=== PATIENT | female | born 1955 | race Hispanic/Latino ===

== ENCOUNTER 2024-11-27 10:42 | Day surgery (SDC) | payer OTHER ==
[2024-11-23 12:00] VITALS: BP 158/65; PULSE 61; RESP 18; TEMP 97.7
[2024-11-23 12:05] LABS: BASOPHILS # (AUTO) 0.04 K/uL (0.00-0.20); BASOPHILS % (AUTO) 0.5 % (0.0-5.0); EOSINOPHILS # (AUTO) 0.16 K/uL (0.00-0.70); EOSINOPHILS % (AUTO) 2.1 % (0.0-8.0); HEMATOCRIT 42.7 % (36-48); IMMATURE GRANULOCYTE ABSOLUTE 0.03 K/uL (0-1); LYMPHOCYTES % (AUTO) 26.8 % (21.0-51.0); MEAN CORPUSCULAR HEMOGLOBIN 31.1 pg (27.0-33.0); MEAN CORPUSCULAR HGB CONC 32.3 g/dL (32.0-36.0); MEAN CORPUSCULAR VOLUME 96.2 fL (79-99); MONOCYTES # (AUTO) 0.7 K/uL (0.1-1.0); MONOCYTES % (AUTO) 9.7 % (3.0-13.0); NEUTROPHILS # (AUTO) 4.5 K/uL (1.8-7.7); NEUTROPHILS % (AUTO) 60.5 % (40.0-77.0); PLATELET COUNT (AUTO) 186 K/uL (130-400); RED BLOOD CELL COUNT(AUTO) 4.44 MIL/uL (4.00-5.50); RED CELL DISTRIBUTION WIDTH 12.9 % (11.0-15.5); WHITE BLOOD COUNT (AUTO) 7.5 K/uL (4.8-10.8)
[2024-11-23 12:13] LABS: INR 0.97 (0.85-1.15); PROTHROMBIN TIME 10.3 SEC (9.6-11.6)
[2024-11-23 12:14] LABS: PARTIAL THROMBOPLASTIN TIME 28.9 SEC (26.3-35.5)
[2024-11-23 12:25] LABS: CREATININE 0.8 mg/dL (0.5-1.0); POTASSIUM 4.4 mmol/L (3.5-5.1)
--- NOTE | 2024-11-23 12:30 | NUR ---
verify called dr ramirez/laci nurse to verify no cxr wanted for c. Received orders for cxr
[2024-11-23 12:35] LABS: APPEARANCE,URINE CLEAR (CLEAR); BILIRUBIN,URINE NEGATIVE (NEGATIVE); COLOR,URINE COLORLESS (YELLOW); GLUCOSE, URINE (UA) NEGATIVE (NEGATIVE); KETONES,URINE NEGATIVE (NEGATIVE); LEUKOCYTE ESTERASE ,URINE NEGATIVE Leu/uL (NEGATIVE); NITRATE,URINE NEGATIVE (NEGATIVE); OCCULT BLOOD,URINE NEGATIVE (NEGATIVE); PROTEIN,URINE NEGATIVE (NEGATIVE); UROBILINOGEN,URINE 0.2 mg/dL (0.2-1.0)
[2024-11-23 12:39] LABS: ADD UA MICROSCOPIC NO
[2024-11-23 12:42] LABS: B-TYPE NATRIURETIC PEPTIDE 73 pg/mL (0-100)
--- NOTE | 2024-11-23 13:17 | HMCIMG ---
Exam Type: CHEST 1VW Clinical Information: PRECATH Comparison: None Findings: The lungs are clear of infiltrates. The heart is normal in size. The bony and soft tissue structures of the chest are unremarkable. Impression: Clear lungs.
--- NOTE | 2024-11-23 13:38 | EKG ---
[facility] Test Date: 2024-11-23 Test Time: 11:51:34 Pat Name: JAIME RODAS Department: [facility] Room: Gender: F Brusher: [id number] : 1955 Requested By: Rajani MAHAN Order Number: [id number] Reading MD: Rg Sharif Measurements Intervals [place] Rate: 63 P: 62 CO: 136 QRS: -18 QRSD: 77 T: 34 QT: 459 QTc: 468 Interpretive Statements Sinus rhythm Probable left atrial enlargement Probable left ventricular hypertrophy No previous ECG available for comparison Electronically Signed On 11-26-2024 18:29:41 CDT by Rg Sharif Please click the below link to view image of tracing.
--- NOTE | 2024-11-24 15:54 | NUR ---
orders received the following instructions from herminia murray rn. pt may have clears before 8 am on procedure day then fasting until procedure. pt and sister (janice) informed of above and voiced understanding.
[2024-11-27] VITALS (8 sets, daily range): BP systolic 99–180; BP diastolic 57–71; PULSE 57–69; RESP 14–16; TEMP 97.2–97.9
[~2024-11-27] VITALS: Ht 154.9 cm; Wt 62.3 kg
[~2024-11-27 10:42] MED LIST: ALPR-409 PO; AMLO2.5T4 PO; CALCIUM PO; CITA-108 PO; CLOT15CR5 TP; ERGO500093 PO; FLUT16H NASAL; METO-391 PO; OMEP20CA12 PO; ROSU5TAB51 PO
[2024-11-27] MEDS ORDERED: SODIUM BICARB 50MEQ 50ML VIAL 50 ML ONE (12:06)
[2024-11-27] MEDS ORDERED: HEParin 10,000 UNIT/10ML (1,000 UNIT/ML) VIAL ONE (12:06)
[2024-11-27] MEDS ORDERED: HEParin-NS 1,000 UNIT/500 ML 1,000 ML IV ONE (12:06)
[2024-11-27] MEDS ORDERED: NITROGLYCERIN 50MG VIAL ONE (12:06)
[2024-11-27] MEDS ORDERED: LIDOCAINE HCL 400MG/20ML VIAL ONE (12:06)
[2024-11-27] MEDS ORDERED: IOHEXOL 350 MG/ML 100ML INFUS..BTL IV ONE (12:20)
[2024-11-27] MEDS ORDERED: niCARDIpine 25MG INJ IV ONE (12:21)
[2024-11-27] MEDS ORDERED: MIDAZOLAM HCL 1 MG/ML 2ML VIAL ONE ×2 (12:28→12:35)
[2024-11-27] MEDS ORDERED: FENTanyl CITRate PF 50 MCG/1 ML 2ML VIAL ONE (12:28)
[2024-11-27] MEDS: 0.9%NACL 1000ML 1,000 ML IV SCH (13:30)
--- NOTE | 2024-11-27 14:57 | CCATH ---
PROCEDURES: * Left heart catheterization. * Selective diagnostic right and left coronary arteriogram. * Conscious sedation for 60 minutes. * IFR of the LAD. INDICATIONS: * Coronary artery disease. * Abnormal coronary CTA. COMPLICATIONS: None. TOTAL CONTRAST: 75 mL. APPROACH: Right radial approach. DESCRIPTION OF PROCEDURE: The patient was taken to the cardiac catheterization lab after appropriate operative consents were signed. She was prepped and draped in the usual fashion. After a conscious sedation was administered, the right radial artery region was infiltrated with 2% Xylocaine without epinephrine. A 6-Maori slender sheath was advanced in retrograde fashion with modified Seldinger technique after access and cannulation of the radial artery. At this point, a TIG 4 catheter was advanced, positioned over an indwelling wire into the left ventricular cavity. Left ventricular end-diastolic pressure measurement was obtained. Ventriculography was deferred. There was no evidence of aortic stenosis. An echocardiogram has been ordered. The catheter was then engaged in the ostium of the left main. This was imaged in multiplane. This was a large vessel that was short in its course and free of disease. It was calcified, but nonstenotic. It trifurcated into an LAD, and intermediate and circumflex. Circumflex coronary artery was a large vessel that gave rise to a small obtuse marginal 1 and two moderately sized OM2 and OM3 and ongoing circ with a PLVB and a PDA off of the left consistent with a left dominant system. There was no significant disease in the left circumflex. Intermediate was a large branching vessel that had a 30% lesion in its main body. No other significant lesions were identified. The LAD was a large vessel that gave rise to a tiny diagonal 1, second diagonal 2, that was a small to moderate. The LAD had a 60-70% eccentric hazy lesion in the mid segment between the first diagonal and the second diagonal. The LAD was large and had no other significant lesions. At this point, the catheter was engaged in the right coronary artery. This was imaged in multiplane identifying a calcified nondominant right; however, it was a sizable vessel, giving rise to an acute marginal branch that was large as well. Given the patient's presentation, I elected to proceed with an iFR of the left anterior descending coronary artery. We utilized multiple catheters including an XB 3-1/2 and a FL3.5. Because of the proximity of the takeoff of the LAD from the ostium of the left main the cannulation was difficult however, we were able to utilize a ChoICE PT wire that was advanced and placed intermediate vessel to be an anchoring wire. Then, we were able to get the iFR wire into the LAD. Multiple measurements were obtained, identifying no significant iFR readings. Both readings that had been recorded were measured at 1.0. Given that, we did not intervene and the patient was managed medically. The catheter was withdrawn over an indwelling wire. Radial band was applied with good hemostasis. The patient tolerated the procedure well, left the cardiac catheterization lab in stable condition. FINAL IMPRESSION: Coronary artery disease. PLAN: We will add Plavix given the patient's ASPIRIN ALLERGY. We will continue the medications and evaluate the patient is an outpatient. TID: [id number] RECEIPT: [id number]
[2024-11-27] MEDS ORDERED: CLOP75TA32 PO (15:48)
[2024-11-27] MEDS ORDERED: PANT40TA54 PO (15:49)
--- NOTE | 2024-11-27 15:55 | NUR ---
VASC BAND REMOVED AT THIS TIME VSS NAD. RIGHT RADIAL DRESSED WITH STERILE GAUZE AND TEGADERM. PT TOLERATED WELL SITE ASYMPTOMATIC. VSS
--- NOTE | 2024-11-27 16:59 | NUR ---
RE: HANDOFF REPORT RECEIVED REPORT FROM RITA RODRIGUEZ RN AT BEDSIDE USING SBAR. DRESSING TO RIGHT WRIST S/P LHC VIA RADIAL APPROACH. NO BLEEDING OR HEMATOMA NOTED. FAMILY MEMBER AT BEDSIDE.
--- NOTE | 2024-11-27 17:34 | NUR ---
PATIENT DISCHARGED FROM FACILITY VIA WHEELCHAIR BY KYARA LIRA. PATIENT ASSISTED INTO PRIVATE VEHICLE DRIVEN BY SPOUSE
--- NOTE | 2024-11-29 09:27 | HMCSR ---
APPROVED REPORT EXAM: LIMITED Two-dimensional and M-mode echocardiogram. INDICATION ICD: Assess LV Function Left Ventricle Left ventricular cavity size is normal. There is normal left ventricular wall thickness. LVEF is 65-7 0%. Conclusion Left ventricular cavity size is normal. There is normal left ventricular wall thickness. LVEF is 65-70%.
== END 2024-11-27 17:34 | disposition home or self-care (01) ==
LOC: DAH 10:42
PROVIDERS: ATTEND Internal Medicine Cardiovascular Disease
DX: R93.1 Abnormal findings on diagnostic imaging of heart and coronary circulation (principal); I25.118 Atherosclerotic heart disease of native coronary artery with other forms of angina pectoris; I10 Essential (primary) hypertension; E78.5 Hyperlipidemia, unspecified; F41.9 Anxiety disorder, unspecified; Z88.6 Allergy status to analgesic agent; Z88.8 Allergy status to other drugs, medicaments and biological substances; Z79.01 Long term (current) use of anticoagulants; Z79.02 Long term (current) use of antithrombotics/antiplatelets; Z79.899 Other long term (current) drug therapy
CPT/HCPCS: 80048; 83880; 85025; 85610; 85730; 81003; 36415; 71045; 93005; 93458; 93571; 85347; 82948; 93308; Q9965; C1769 ×3; C1887 ×3; A4649; C1894; J3010; J3490 ×4; J1644 ×2; J2250 ×2; Q9967; A4215; A4222; A4221; A4663; A4216; A4606; A4223 ×3; 99156; 99157